=== PATIENT | male | born 2000 | race Two or more races ===

== ENCOUNTER 2023-06-19 19:55 | Inpatient (IN) | payer BC, MEDICAID ==
[2023-06-19] MEDS ORDERED: Aspirin 325 MG Tab PO ONE (20:19)
[2023-06-19] MEDS ORDERED: Aspirin 81 MG Tab.Chew PO STA (20:27)
[2023-06-19 20:29] LABS: BASOPHILS ABSOLUTE AUTO 0.06 K/uL (0.00-0.20); BASOPHILS PERCENT AUTO 1.3 % (0.0-1.0); EOSINOPHILS ABSOLUTE AUTO 0.17 K/uL (0.00-0.45); EOSINOPHILS PERCENT AUTO 3.8 % (0.0-6.0); HEMATOCRIT 48.5 % (42.0-52.0); HEMOGLOBIN 17.6 g/dL (14.0-18.0); IMMATURE GRAN ABSOLUTE AUTO 0.01 K/uL (0.00-0.05); IMMATURE GRAN PERCENT AUTO 0.2 % (0.0-0.4); LYMPHOCYTES ABSOLUTE AUTO 1.47 K/uL (1.00-4.80); LYMPHOCYTES PERCENT AUTO 32.5 % (24.0-44.0); MEAN CORPUSCULAR HEMOGLOBIN 30.7 pg (28.0-32.0); MEAN CORPUSCULAR HGB CONC 36.3 g/dL (32.0-36.0); MEAN CORPUSCULAR VOLUME 84.5 fL (83.0-99.0); MEAN PLATELET VOLUME 9.4 fL (9.4-12.4); MONOCYTES ABSOLUTE AUTO 0.39 K/uL (0.00-0.80); MONOCYTES PERCENT AUTO 8.6 % (0.0-8.0); NEUTROPHILS ABSOLUTE AUTO 2.43 K/uL (1.80-7.70); NEUTROPHILS PERCENT AUTO 53.6 % (41.0-71.0); PLATELET COUNT,PLT 264 K/uL (150-400); RED BLOOD CELL COUNT 5.74 M/uL (4.52-5.90); WHITE BLOOD CELL COUNT,WBC 4.53 K/uL (3.9-11.3)
[2023-06-19] MEDS ORDERED: Sodium Chloride 0.9% 1,000 ML IV ONE (20:36)
[2023-06-19 20:44] LABS: INR 1.16 (0.86-1.11)
[2023-06-19 20:56] LABS: A/G RATIO 1.4 (0.9-1.6); ALANINE AMINOTRANSFERASE,ALT 21 IU/L (14-63); ALBUMIN 4.6 g/dL (3.4-5.0); ALKALINE PHOSPHATASE 103 U/L (46-116); ASPARTATE AMNIOTRANSFERASE,AST 25 IU/L (15-37); BILIRUBIN TOTAL 0.7 mg/dL (0.2-1.0); BLOOD UREA NITROGEN,BUN 16 mg/dL (7.0-18.0); CALCIUM 9.4 mg/dL (8.5-10.1); CARBON DIOXIDE,CO2 26.2 mmol/L (21.0-32.0); CHLORIDE,CL 102 mmol/L (98-107); CREATININE 1.1 mg/dL (0.8-1.3); EST CRCL DRUG DOSING (CG) 106.92 mL/min; GLUCOSE RANDOM 84 mg/dL (74-106); POTASSIUM,K 4.2 mmol/L (3.5-5.1); SODIUM,NA 138 mmol/L (136-148)
[2023-06-19 20:58] LABS: ESTIMATED GFR 96 mL/min (>60)
[2023-06-19 21:04] LABS: CORONAVIRUS COVID-19 NAA NEGATIVE (NEGATIVE); INFLUENZA A NAA NEGATIVE (NEGATIVE); INFLUENZA B NAA NEGATIVE (NEGATIVE)
[2023-06-19] MEDS ORDERED: Iopamidol 755 MG/ML 500 ML Multipack Bottle IVPUSH ONE (21:51)
[2023-06-19] MEDS ORDERED: Morphine 4 MG/ML Syringe IVPUSH ONE (22:38)
[2023-06-19] MEDS ORDERED: Naloxone 0.4 MG/ML SDV IVPUSH PRN (22:38)
[2023-06-20] MEDS ORDERED: Ondansetron 4 MG/2 ML SDV IVPUSH PRN ×3 (01:48→16:05)
[2023-06-20] MEDS: Morphine 2 MG/ML SYRINGE IVPUSH PRN (04:25)
[2023-06-20] MEDS ORDERED: fentaNYL 100 MCG/2 ML SDV ONE (14:41)
[2023-06-20] MEDS ORDERED: Ketorolac 30 MG/ML SDV ONE (14:41)
[2023-06-20] MEDS ORDERED: Lidocaine 2% 5 ML SDV ONE ×2 (14:41→15:03)
[2023-06-20] MEDS ORDERED: Propofol 200 MG/20 ML SDV ONE ×2 (14:41→15:24)
[2023-06-20] MEDS ORDERED: Ondansetron 4 MG/2 ML SDV ONE (14:41)
[2023-06-20] MEDS ORDERED: Bupivacaine 0.5% 30 ML SDV ONE (15:03)
[2023-06-20] MEDS ORDERED: Midazolam 1 MG/ML 2 ML SDV ONE (15:06)
[2023-06-20] MEDS ORDERED: ceFAZolin 1 GM Vial ONE (15:19)
[2023-06-20] MEDS ORDERED: Naloxone 0.4 MG/ML SDV IVPUSH PRN (16:05)
[2023-06-20] MEDS ORDERED: fentaNYL 50 MCG/ML SDV IVPUSH PRN (16:05)
[2023-06-20] MEDS ORDERED: Albuterol 0.083% 2.5 MG/3 ML Neb Soln NEB PRN (16:05)
[2023-06-20] MEDS ORDERED: Metoclopramide 10 MG/2 ML SDV IVPUSH PRN (16:05)
[2023-06-20] MEDS ORDERED: HYDROmorphone 1 MG/ML Syringe IVPUSH PRN (16:05)
[2023-06-20] MEDS ORDERED: Morphine 2 MG/ML SYRINGE IVPUSH PRN (16:05)
[2023-06-20] MEDS ORDERED: droPERidol 5 MG/2 ML SDV IVPUSH PRN (16:05)
[2023-06-20] MEDS: Acetaminophen 325 MG Tab PO PRN (20:34)
[2023-06-21] MEDS: Morphine 2 MG/ML SYRINGE IVPUSH PRN ×2 (04:02→16:47)
[2023-06-21] MEDS: Acetaminophen 325 MG Tab PO PRN (06:14)
[2023-06-21 06:17] LABS: BASOPHILS ABSOLUTE AUTO 0.03 K/uL (0.00-0.20); BASOPHILS PERCENT AUTO 0.5 % (0.0-1.0); EOSINOPHILS ABSOLUTE AUTO 0.29 K/uL (0.00-0.45); EOSINOPHILS PERCENT AUTO 4.4 % (0.0-6.0); HEMATOCRIT 43.9 % (42.0-52.0); HEMOGLOBIN 15.5 g/dL (14.0-18.0); IMMATURE GRAN ABSOLUTE AUTO 0.02 K/uL (0.00-0.05); IMMATURE GRAN PERCENT AUTO 0.3 % (0.0-0.4); LYMPHOCYTES PERCENT AUTO 19.8 % (24.0-44.0); MEAN CORPUSCULAR HEMOGLOBIN 30.4 pg (28.0-32.0); MEAN CORPUSCULAR HGB CONC 35.3 g/dL (32.0-36.0); MEAN CORPUSCULAR VOLUME 86.1 fL (83.0-99.0); MEAN PLATELET VOLUME 9.8 fL (9.4-12.4); MONOCYTES ABSOLUTE AUTO 0.57 K/uL (0.00-0.80); MONOCYTES PERCENT AUTO 8.7 % (0.0-8.0); NEUTROPHILS ABSOLUTE AUTO 4.34 K/uL (1.80-7.70); NEUTROPHILS PERCENT AUTO 66.3 % (41.0-71.0); PLATELET COUNT,PLT 230 K/uL (150-400); WHITE BLOOD CELL COUNT,WBC 6.55 K/uL (3.9-11.3)
[2023-06-21 06:37] LABS: CALCIUM 8.9 mg/dL (8.5-10.1); CARBON DIOXIDE,CO2 29.5 mmol/L (21.0-32.0); EST CRCL DRUG DOSING (CG) 117.61 mL/min; POTASSIUM,K 4.3 mmol/L (3.5-5.1)
[2023-06-21] MEDS ORDERED: Morphine 2 MG/ML SYRINGE IVPUSH PRN ×2 (19:33→20:08)
[2023-06-21] MEDS ORDERED: Acetaminophen/HYDROcodone 325-5 MG Tab PO PRN (20:09)
[2023-06-22 06:18] LABS: BASOPHILS ABSOLUTE AUTO 0.04 K/uL (0.00-0.20); BASOPHILS PERCENT AUTO 0.6 % (0.0-1.0); EOSINOPHILS ABSOLUTE AUTO 0.45 K/uL (0.00-0.45); EOSINOPHILS PERCENT AUTO 6.7 % (0.0-6.0); HEMATOCRIT 46.3 % (42.0-52.0); HEMOGLOBIN 16.5 g/dL (14.0-18.0); IMMATURE GRAN ABSOLUTE AUTO 0.01 K/uL (0.00-0.05); IMMATURE GRAN PERCENT AUTO 0.1 % (0.0-0.4); LYMPHOCYTES ABSOLUTE AUTO 1.42 K/uL (1.00-4.80); LYMPHOCYTES PERCENT AUTO 21.2 % (24.0-44.0); MEAN CORPUSCULAR HEMOGLOBIN 30.5 pg (28.0-32.0); MEAN CORPUSCULAR HGB CONC 35.6 g/dL (32.0-36.0); MEAN CORPUSCULAR VOLUME 85.6 fL (83.0-99.0); MEAN PLATELET VOLUME 9.7 fL (9.4-12.4); MONOCYTES ABSOLUTE AUTO 0.45 K/uL (0.00-0.80); MONOCYTES PERCENT AUTO 6.7 % (0.0-8.0); NEUTROPHILS ABSOLUTE AUTO 4.34 K/uL (1.80-7.70); NEUTROPHILS PERCENT AUTO 64.7 % (41.0-71.0); PLATELET COUNT,PLT 245 K/uL (150-400); RED BLOOD CELL COUNT 5.41 M/uL (4.52-5.90); WHITE BLOOD CELL COUNT,WBC 6.71 K/uL (3.9-11.3)
[2023-06-22] MEDS ORDERED: fentaNYL 100 MCG/2 ML SDV ONE (06:27)
[2023-06-22 06:42] LABS: CALCIUM 8.9 mg/dL (8.5-10.1); CARBON DIOXIDE,CO2 31.2 mmol/L (21.0-32.0); CREATININE 0.9 mg/dL (0.8-1.3); EST CRCL DRUG DOSING (CG) 130.68 mL/min; POTASSIUM,K 3.3 mmol/L (3.5-5.1)
== END 2023-06-22 15:05 | disposition home or self-care (01) | DRG 143 ==
LOC: MW.ED 19:55 → MW.MS 23:57 → OBSVTOIN 23:57 → MW.MS 06-21 17:59
PROVIDERS: ADMIT Family Medicine; ATTEND Surgery
PROC: 0W9930Z Drainage of Right Pleural Cavity with Drainage Device, Percutaneous Approach (ICD-10-PCS; principal; 2023-06-20 14:51)
PROC: 0WP930Z Removal of Drainage Device from Right Pleural Cavity, Percutaneous Approach (ICD-10-PCS; 2023-06-22)
DX: J93.83 Other pneumothorax (principal); I45.10 Unspecified right bundle-branch block; Z11.52 Encounter for screening for COVID-19; Z98.890 Other specified postprocedural states
CPT/HCPCS: 0240U; 36415; 71045; 71045-26; 71046; 71046-26; 71275; 71275-26; 80048; 80053; 84484; 85025; 85610; 93010; 96361; 96374; 96376; 99284; 99285-25; A9270-GY; G0378; J0665; J0690; J1170; J1885; J2250; J2270; J2405; J2704; J3010; J3490; J7030; Q9967